=== PATIENT | female | born 1980 | race Two or more races ===

== ENCOUNTER 2017-12-29 15:30 | Inpatient (IN) | payer OTHER ==
[~2017-12-29] VITALS: Ht 165.1 cm; Wt 189.0 kg
[2018-01-25] MEDS ORDERED: PRENATAL TABLE1 EAC2 PO (13:33)
== END 2018-01-27 14:20 | disposition home or self-care (01) | DRG 807 ==
LOC: LDR 01-25 05:30 → OB/GYN 01-25 05:30 → LDR 01-25 15:30 → OB/GYN 01-25 19:22
PROC: 10D07Z6 Extraction of Products of Conception, Vacuum, Via Natural or Artificial Opening (ICD-10-PCS; principal; 2018-01-25)
PROC: 10907ZC Drainage of Amniotic Fluid, Therapeutic from Products of Conception, Via Natural or Artificial Opening (ICD-10-PCS; 2018-01-25)
PROC: 0W8NXZZ Division of Female Perineum, External Approach (ICD-10-PCS; 2018-01-25)
PROC: 4A1HXCZ Monitoring of Products of Conception, Cardiac Rate, External Approach (ICD-10-PCS; 2018-01-25)
DX: O66.5 Attempted application of vacuum extractor and forceps (principal); Z37.0 Single live birth; Z3A.40 40 weeks gestation of pregnancy

== ENCOUNTER 2018-01-17 10:16 | Outpatient (CLI) | payer OTHER | END 2018-01-17 10:55 | disposition home or self-care (01) | LOC: NST 10:16 | DX: Z34.83 Encounter for supervision of other normal pregnancy, third trimester (principal) ==

== ENCOUNTER 2018-01-24 11:47 | Outpatient (CLI) | payer OTHER ==
[2018-01-25] MEDS ORDERED: PRENATAL TABLE1 EAC2 PO (13:33)
== END 2018-01-24 12:44 | disposition home or self-care (01) ==
LOC: NST 11:47
DX: Z34.83 Encounter for supervision of other normal pregnancy, third trimester (principal)